=== PATIENT | female | born 1960 | race Caucasian/White ===

== ENCOUNTER 2016-05-25 11:30 | Emergency (ER) | payer OTHER ==
[~2016-05-25] VITALS: Ht 162.6 cm; Wt 89.1 kg
[~2016-05-25 11:30] MED LIST: ADULT LOW DOSE81 M1 PO; ADVIL200 MG PO; AEROECLIPSE1 EACH MC; AMITRIPTYLINE H25 MG PO; AMLODIPINE BES2.5 MG PO; ASPIR 8181 M1 PO; ATORVASTATIN CA40 MG PO; BENTYL10 MG PO; CALCIUM + VITA1 EAC1 PO; CALCIUM + VITA1 EACH PO; CENTRUM SILVER1 EAC3 PO; CIPRO500 MG PO; CIPROFLOXACIN500 M1 PO; CLONAZEPAM0.5 MG PO; CLONAZEPAM1 MG PO; CLONAZEPAM2 MG PO; COMBIVENT200 INHALA IH; CYANOCOBALAM1000 MCG PO; CYMBALTA60 MG PO; EFFEXOR75 MG PO; FLAGYL500 MG PO; GABAPENTIN100 MG PO; GLUCOPHAGE1000 MG PO; HUMALOG100 UNIT/1 SC; HUMALOG100 UNIT/2 SC; HYDROCHLOROTH12.5 MG PO; HYDROCHLOROTHIA25 MG PO; KLONOPIN2 MG PO; LANTUS (UNITS)1 UNIT IV; LANTUS 10100 UNITS/ SC; LANTUS 3 M100 UNITS1 SC; LEVOTHROID88 MCG PO; LEVOTHYROXINE88 MCG PO; LIPITOR40 MG PO; LISINOPRIL-HCT1 EACH PO; LOTENSIN20 MG PO; LOW DOSE ASPIRI81 M1 PO; LYRICA75 MG PO; MAGNESIUM250 MG PO; METFORMIN HCL500 MG PO; MICARDIS20 MG PO; NASONEX17 GM BOTH NARES; NEURONTIN100 MG PO; NEURONTIN600 MG PO; NORVASC10 MG PO; NOVOLOG 10100 UNITS/ SC; NOVOLOG PE100 UNITS/ SC; PRAVACHOL80 MG PO; PROMETHAZINE HC25 M1 PO; PROTONIX40 MG PO; PROVENTIL HFA6.7 GM IH; PROVENTIL2.5 MG/3 M IH; QUETIAPINE FUM100 MG PO; SEROQUEL100 MG PO; SEROQUEL200 MG PO; SIMVASTATIN80 M1 PO; SYMBICORT60 INHALAT IH; SYNTHROID88 MCG PO; TESSALON PERLE100 MG PO; TOPAMAX100 MG PO; TOPAMAX200 MG PO; TOPAMAX50 MG PO; TOPIRAMATE25 MG PO; TOPIRAMATE50 MG PO; TOPROL XL100 MG PO; ULTRAM50 MG PO; VITAMIN B-6100 MG PO; WELLBUTRIN SR150 MG PO
[2016-05-25] MEDS ORDERED: PERCOCET 5/31 TABLET PO (13:16)
[2016-05-25 15:46] VITALS: BP 156/88
[2016-06-03] MEDS ORDERED: OXYCODONE-ACET1 EACH PO (16:19)
== END 2016-05-25 15:46 | disposition home or self-care (01) ==
LOC: EME → EDBD 11:30 → EME 11:30
PROC: 2W3QX1Z Immobilization of Right Lower Leg using Splint (ICD-10-PCS; principal; 2016-05-25)
DX: S82.301A Unspecified fracture of lower end of right tibia, initial encounter for closed fracture (principal); S82.61XA Displaced fracture of lateral malleolus of right fibula, initial encounter for closed fracture; W10.9XXA Fall (on) (from) unspecified stairs and steps, initial encounter; E11.9 Type 2 diabetes mellitus without complications; I10 Essential (primary) hypertension; Z88.2 Allergy status to sulfonamides; Z88.0 Allergy status to penicillin
CPT/HCPCS: 73590; 73610; 99281; 99284; G8978 GP CJ; G8979 GP CI; G8987 GO CJ; G8988 GO CH

== ENCOUNTER 2016-06-07 10:09 | Inpatient (IN) | payer OTHER ==
[~2016-06-07] VITALS: Ht 162.6 cm; Wt 89.0 kg
[~2016-06-07 10:09] MED LIST changes: +OXYCODONE-ACET1 EACH PO; +PERCOCET 5/31 TABLET PO
[2016-06-07 10:37] VITALS: BP 134/60
[2016-06-07 11:05] LABS: POINT-OF-CARE METER ID UU14174212
[2016-06-07 17:25] LABS: POINT-OF-CARE METER ID UU13113675
[2016-06-07 18:05] LABS: POINT-OF-CARE METER ID UU13113714
[2016-06-07 18:07] LABS: POINT-OF-CARE METER ID UU13113675
[2016-06-07 20:35] VITALS: BP 130/65
[2016-06-07 21:50] VITALS: BP 130/65
[2016-06-07 22:30] LABS: POINT-OF-CARE METER ID UU14188577
[2016-06-08] VITALS (7 sets, daily range): BP systolic 109–188; BP diastolic 55–83
[2016-06-08 07:28] LABS: HEMATOCRIT 26.1 % (36.0-46.0); MCV 87.9 FL (83-99)
[2016-06-08] MEDS ORDERED: ENDOCET 5-3251 EACH PO ×2 (08:07→08:23)
[2016-06-08] MEDS ORDERED: LOVENOX40 MG/0.4 SC ×2 (08:07→08:23)
[2016-06-08 11:34] LABS: POINT-OF-CARE METER ID UU14188577
[2016-06-08 16:52] LABS: POINT-OF-CARE METER ID UU14188577
[2016-06-08 21:48] LABS: POINT-OF-CARE METER ID UU14188577
[2016-06-09 03:41] VITALS: BP 138/63
[2016-06-09 06:21] LABS: POINT-OF-CARE METER ID UU14188577
[2016-06-09 08:25] VITALS: BP 145/67
[2016-06-09 11:46] LABS: POINT-OF-CARE METER ID UU14149397
[2016-06-09 12:21] VITALS: BP 164/70
[2016-06-09 16:23] LABS: POINT-OF-CARE METER ID UU14149397
[2016-06-09 16:41] VITALS: BP 130/41
[2016-06-09 21:23] LABS: POINT-OF-CARE METER ID UU14149397
[2016-06-10] VITALS (10 sets, daily range): BP systolic 122–174; BP diastolic 58–73
[2016-06-10 07:14] LABS: POINT-OF-CARE METER ID UU14188577
[2016-06-10 07:24] LABS: HEMATOCRIT 21.3 % (36.0-46.0); MCH 27.5 PG (29.0-34.0); MCHC 31.9 G/DL (30.0-36.0); MCV 86.2 FL (83-99); MEAN PLAT.VOLUME 10.3 uM^3 (9.5-12.4); PLATELET COUNT 231 K/uL (156-360); RBC DIS.WIDTH-CV 13.1 % (11.8-14.6); RBC DIS.WIDTH-SD 41.7 % (39-53); WHITE BLOOD COUNT 7.4 K/uL (4.1-10.2)
[2016-06-10 07:34] LABS: ANION GAP 6 MEQ/L (2-14); CHLORIDE 107 MEQ/L (99-109); GFR ESTIMATE (CALCULATED) 41 mL/min/; GLUCOSE 160 mg/dL (70-99); POTASSIUM 4.7 MEQ/L (3.7-5.4); SAMPLE HEMOLYSIS CHECK 0; SAMPLE ICTERIC CHECK 0; SAMPLE LIPEMIA CHECK 0; SODIUM 135 MEQ/L (136-147); UREA NITROGEN (BUN) 30 mg/dL (9-23)
[2016-06-10 07:35] LABS: RED BLOOD COUNT 2.47 M/uL (3.80-5.20)
[2016-06-10 11:06] LABS: POINT-OF-CARE METER ID UU14188577
[2016-06-10 16:11] LABS: POINT-OF-CARE METER ID UU14188577
[2016-06-11] VITALS (7 sets, daily range): BP systolic 136–187; BP diastolic 58–86
[2016-06-11 05:30] LABS: HEMATOCRIT 27.6 % (36.0-46.0); MCH 28.2 PG (29.0-34.0); MCHC 32.2 G/DL (30.0-36.0); MCV 87.3 FL (83-99); MEAN PLAT.VOLUME 10.8 uM^3 (9.5-12.4); PLATELET COUNT 256 K/uL (156-360); RBC DIS.WIDTH-CV 13.2 % (11.8-14.6); RBC DIS.WIDTH-SD 42.5 % (39-53); WHITE BLOOD COUNT 7.3 K/uL (4.1-10.2)
[2016-06-11 05:32] LABS: RED BLOOD COUNT 3.16 M/uL (3.80-5.20)
[2016-06-11 05:43] LABS: ANION GAP 9 MEQ/L (2-14); CHLORIDE 108 MEQ/L (99-109); GFR ESTIMATE (CALCULATED) 41 mL/min/; POTASSIUM 4.8 MEQ/L (3.7-5.4); SAMPLE HEMOLYSIS CHECK 0; SAMPLE ICTERIC CHECK 0; SAMPLE LIPEMIA CHECK 0; SODIUM 138 MEQ/L (136-147); UREA NITROGEN (BUN) 31 mg/dL (9-23)
[2016-06-11 05:44] LABS: GLUCOSE 255 mg/dL (70-99)
[2016-06-11 16:29] LABS: POINT-OF-CARE METER ID UU14149397
[2016-06-11 21:48] LABS: POINT-OF-CARE METER ID UU14188577
[2016-06-12] VITALS (8 sets, daily range): BP systolic 152–192; BP diastolic 65–99
[2016-06-12 12:06] LABS: POINT-OF-CARE METER ID UU14188577
[2016-06-12 17:01] LABS: POINT-OF-CARE METER ID UU14149397
[2016-06-13 07:33] VITALS: BP 192/86
[2016-06-13 11:47] LABS: POINT-OF-CARE METER ID UU14188577
[2016-06-13 12:02] VITALS: BP 190/78
[2016-06-13 14:19] VITALS: BP 170/92
[2016-06-13 16:16] VITALS: BP 188/90
[2016-06-13 17:03] LABS: POINT-OF-CARE METER ID UU14188577
[2016-06-13 21:25] VITALS: BP 185/85
[2016-06-13 22:57] VITALS: BP 108/54
[2016-06-14 05:25] VITALS: BP 135/64
[2016-06-14 07:17] VITALS: BP 136/61
[2016-06-14] MEDS ORDERED: AMLODIPINE BESYL5 MG PO (08:22)
[2016-06-14 09:25] LABS: HEMATOCRIT 35.4 % (36.0-46.0); MCH 27.3 PG (29.0-34.0); MCHC 30.8 G/DL (30.0-36.0); MCV 88.5 FL (83-99); MEAN PLAT.VOLUME 10.1 uM^3 (9.5-12.4); RBC DIS.WIDTH-CV 13.4 % (11.8-14.6); RBC DIS.WIDTH-SD 43.9 % (39-53); WHITE BLOOD COUNT 8.7 K/uL (4.1-10.2)
[2016-06-14 09:38] LABS: ANION GAP 8 MEQ/L (2-14); CHLORIDE 103 MEQ/L (99-109); GFR ESTIMATE (CALCULATED) 41 mL/min/; GLUCOSE 164 mg/dL (70-99); PLATELET COUNT 376 K/uL (156-360); SAMPLE HEMOLYSIS CHECK 0; SAMPLE ICTERIC CHECK 0; SAMPLE LIPEMIA CHECK 0; SODIUM 136 MEQ/L (136-147); UREA NITROGEN (BUN) 34 mg/dL (9-23)
[2016-06-14 11:44] LABS: POINT-OF-CARE METER ID UU14188577
[2016-06-14 15:06] VITALS: BP 170/77
== END 2016-06-14 18:04 | DRG 940 ==
LOC: SDC 10:09 → 2SOUTH 17:35 → 3EAST 17:35
PROVIDERS: Hospitalist; Internal Medicine Pulmonary Disease; Nurse Practitioner Family; Orthopaedic Surgery
PROC: 0QSG04Z Reposition Right Tibia with Internal Fixation Device, Open Approach (ICD-10-PCS; principal; 2016-06-07)
PROC: 30233N1 Transfusion of Nonautologous Red Blood Cells into Peripheral Vein, Percutaneous Approach (ICD-10-PCS; 2016-06-10)
DX: G89.18 Other acute postprocedural pain (principal); S82.871A Displaced pilon fracture of right tibia, initial encounter for closed fracture; D62 Acute posthemorrhagic anemia; Z75.1 Person awaiting admission to adequate facility elsewhere; W00.0XXA Fall on same level due to ice and snow, initial encounter; J44.9 Chronic obstructive pulmonary disease, unspecified; R09.02 Hypoxemia; E11.40 Type 2 diabetes mellitus with diabetic neuropathy, unspecified; E78.5 Hyperlipidemia, unspecified; I10 Essential (primary) hypertension; F41.9 Anxiety disorder, unspecified; F32.9 Major depressive disorder, single episode, unspecified; F17.210 Nicotine dependence, cigarettes, uncomplicated; E66.9 Obesity, unspecified; Z60.2 Problems related to living alone; Z91.19 Patient's noncompliance with other medical treatment and regimen; Z86.14 Personal history of Methicillin resistant Staphylococcus aureus infection; Z79.82 Long term (current) use of aspirin; Z88.0 Allergy status to penicillin; Z88.2 Allergy status to sulfonamides; Z88.5 Allergy status to narcotic agent; Y92.018 Other place in single-family (private) house as the place of occurrence of the external cause; Z68.33 Body mass index [BMI] 33.0-33.9, adult
CPT/HCPCS: 71275; 73600; 73610; 76000; 80048; 82948; 85014; 85018; 85027; 86850; 86900; 86901; 86920; 93970; 94640; 94640 76; 94799; 97530 GP; 99202; C1713; G0378; G8987 CK; G8988 GO CJ; J0360; J0690; J1170; J1650; J1815; J2250; J2270; J2405; J2710; J2795; J3010; J3370; J7030; P9016

== ENCOUNTER 2016-06-17 09:33 | Emergency (ER) | payer OTHER ==
[~2016-06-17] VITALS: Ht 162.6 cm; Wt 86.6 kg
[~2016-06-17 09:33] MED LIST changes: +AMLODIPINE BESYL5 MG PO; +ENDOCET 5-3251 EACH PO; +LOVENOX40 MG/0.4 SC
[2016-06-17 11:26] LABS: BASOPHIL COUNT 0.1 K/uL (0-0.1); EOSINOPHIL (%) 0.9 % (0-5); EOSINOPHIL COUNT 0.1 K/uL (0-0.3); IMMATURE GRANULOCYTE (%) 0.9 % (0.0-0.7); IMMATURE GRANULOCYTE COUNT 0.1 K/uL; INSTRUMENT ABS NEUTROPHIL CT 7.9 K/uL; LYMPHOCYTE COUNT 1.2 K/uL (1.0-2.8); MCH 27.7 PG (29.0-34.0); MCHC 32.6 G/DL (30.0-36.0); MEAN PLAT.VOLUME 10.7 uM^3 (9.5-12.4); MONOCYTE COUNT 0.7 K/uL (0-0.8); NEUTROPHIL (%) 78.8 % (45-76); NEUTROPHIL COUNT 7.9 K/uL (1.8-6.4); PLATELET COUNT 363 K/uL (156-360); RBC DIS.WIDTH-CV 12.9 % (11.8-14.6); RBC DIS.WIDTH-SD 40.1 % (39-53); RED BLOOD COUNT 4.47 M/uL (3.80-5.20)
[2016-06-17 11:38] LABS: CHLORIDE 102 mEq/L (99-109); SODIUM 133 mEq/L (136-147)
[2016-06-17 11:40] LABS: GLUCOSE 381 mg/dL (70-99)
[2016-06-17 11:41] LABS: ANION GAP 11 MEQ/L (2-14)
[2016-06-17 11:44] LABS: GFR ESTIMATE (CALCULATED) 31 mL/min/; UREA NITROGEN (BUN) 43 mg/dL (9-23)
[2016-06-17] MEDS ORDERED: COLACE100 MG PO (11:55)
[2016-06-17] MEDS ORDERED: MIRALAX17 GM PO (11:55)
[2016-06-17 14:09] VITALS: BP 133/58
== END 2016-06-17 13:00 ==
LOC: EME 09:33
PROVIDERS: Physician Assistant
DX: K59.00 Constipation, unspecified (principal); K21.9 Gastro-esophageal reflux disease without esophagitis; E11.9 Type 2 diabetes mellitus without complications; I10 Essential (primary) hypertension; Z88.2 Allergy status to sulfonamides; Z88.0 Allergy status to penicillin; F17.200 Nicotine dependence, unspecified, uncomplicated
CPT/HCPCS: 80048; 85025; 99281; 99285

== ENCOUNTER 2016-08-04 13:14 | Inpatient (IN) | payer OTHER ==
[~2016-08-04] VITALS: Ht 162.6 cm; Wt 82.2 kg
[~2016-08-04 13:14] MED LIST changes: +COLACE100 MG PO; +MIRALAX17 GM PO
[2016-08-04] MEDS ORDERED: DOCUSATE SODIU100 MG PO (14:28)
[2016-08-04 14:30] LABS: HEMATOCRIT 29.9 % (36.0-46.0); MCH 27.8 PG (29.0-34.0); MCHC 33.4 G/DL (30.0-36.0); MCV 83.1 FL (83-99); PLATELET COUNT 316 K/uL (156-360); RBC DIS.WIDTH-CV 12.6 % (11.8-14.6); RBC DIS.WIDTH-SD 38.5 % (39-53); WHITE BLOOD COUNT 9.2 K/uL (4.1-10.2)
[2016-08-04] MEDS ORDERED: MIRALAX255 GM PO (14:33)
[2016-08-04] MEDS ORDERED: LO-DOSE ASPIRIN81 M2 PO (14:35)
[2016-08-04] MEDS ORDERED: NICOTINE PATCH1 EAC2 TD (14:36)
[2016-08-04] MEDS ORDERED: ONE DAILY MULT1 EACH PO (14:36)
[2016-08-04] MEDS ORDERED: VITAMIN C1000 MG PO (14:36)
[2016-08-04 14:39] LABS: CHLORIDE 102 mEq/L (99-109); POTASSIUM 4.1 mEq/L (3.7-5.4); SODIUM 136 mEq/L (136-147)
[2016-08-04 14:41] LABS: GLUCOSE 108 mg/dL (70-99)
[2016-08-04 14:42] LABS: ANION GAP 10 MEQ/L (2-14); PROTHROMBIN TIME 10.6 (9.2-11.2); PTT 41.5 (25-32)
[2016-08-04 14:45] LABS: GFR ESTIMATE (CALCULATED) 38 mL/min/
[2016-08-04 14:46] LABS: UREA NITROGEN (BUN) 29 mg/dL (9-23)
[2016-08-04] MEDS ORDERED: LOVENOX40 MG/0.4 SC (15:46)
[2016-08-04 23:33] LABS: EOSINOPHIL (%) 2.1 % (0-5); EOSINOPHIL COUNT 0.2 K/uL (0-0.3); HEMATOCRIT 30.8 % (36.0-46.0); IMMATURE GRANULOCYTE (%) 0.5 % (0.0-0.7); INSTRUMENT ABS NEUTROPHIL CT 5.3 K/uL; LYMPHOCYTE COUNT 1.5 K/uL (1.0-2.8); MCH 27.5 PG (29.0-34.0); MCHC 33.1 G/DL (30.0-36.0); MEAN PLAT.VOLUME 9.4 uM^3 (9.5-12.4); MONOCYTE (%) 8.9 % (3-12); MONOCYTE COUNT 0.7 K/uL (0-0.8); NEUTROPHIL (%) 69.3 % (45-76); NEUTROPHIL COUNT 5.3 K/uL (1.8-6.4); PLATELET COUNT 312 K/uL (156-360); RBC DIS.WIDTH-CV 12.6 % (11.8-14.6); RBC DIS.WIDTH-SD 38.4 % (39-53); RED BLOOD COUNT 3.71 M/uL (3.80-5.20); WHITE BLOOD COUNT 7.7 K/uL (4.1-10.2)
[2016-08-04 23:42] LABS: CHLORIDE 111 mEq/L (99-109); POTASSIUM 4.3 mEq/L (3.7-5.4); SODIUM 142 mEq/L (136-147)
[2016-08-04 23:45] LABS: GLUCOSE 72 mg/dL (70-99)
[2016-08-04 23:46] LABS: ANION GAP 9 MEQ/L (2-14); TOTAL BILIRUBIN 0.2 mg/dL (0.0-1.0)
[2016-08-04 23:48] LABS: ALKALINE PHOSPHATASE 87 IU/L (3-129); GFR ESTIMATE (CALCULATED) 49 mL/min/
[2016-08-04 23:49] LABS: UREA NITROGEN (BUN) 22 mg/dL (9-23)
[2016-08-05] VITALS (8 sets, daily range): BP systolic 113–156; BP diastolic 53–87
[2016-08-05 01:26] LABS: ERTH.SED.RATE 49 MM/HR (0-30)
[2016-08-05 04:18] LABS: C-REACTIVE PROTEIN 50.8 MG/L (0-10)
[2016-08-05 07:46] LABS: POINT-OF-CARE METER ID UU14149397
[2016-08-05 09:45] LABS: METH RESISTANT S AUREUS PCR NEGATIVE (NEGATIVE)
[2016-08-05 09:50] LABS: PROBE CHECK PASS; SPECIMEN PROCESSING CONTROL PASS
[2016-08-05 12:00] LABS: POINT-OF-CARE METER ID UU14149397
[2016-08-05 22:11] LABS: POINT-OF-CARE METER ID UU14188577
[2016-08-06 03:46] VITALS: BP 104/57
[2016-08-06 07:59] LABS: HEMATOCRIT 29.2 % (36.0-46.0); MCH 27.7 PG (29.0-34.0); MCHC 32.2 G/DL (30.0-36.0); MCV 86.1 FL (83-99); MEAN PLAT.VOLUME 10.5 uM^3 (9.5-12.4); PLATELET COUNT 305 K/uL (156-360); RBC DIS.WIDTH-CV 12.7 % (11.8-14.6); RED BLOOD COUNT 3.39 M/uL (3.80-5.20)
[2016-08-06 08:05] VITALS: BP 125/63
[2016-08-06 08:23] LABS: ANION GAP 8 MEQ/L (2-14); CHLORIDE 108 MEQ/L (99-109); GFR ESTIMATE (CALCULATED) 38 mL/min/; SAMPLE HEMOLYSIS CHECK 0; SAMPLE ICTERIC CHECK 0; SAMPLE LIPEMIA CHECK 0; SODIUM 140 MEQ/L (136-147); UREA NITROGEN (BUN) 24 mg/dL (9-23)
[2016-08-06 08:30] LABS: GLUCOSE 137 mg/dL (70-99)
[2016-08-06 11:10] VITALS: BP 133/67
[2016-08-06 11:27] LABS: POINT-OF-CARE METER ID UU14188577
[2016-08-06 15:02] LABS: POINT-OF-CARE METER ID UU14188577
[2016-08-06 16:07] VITALS: BP 158/74
[2016-08-06 16:23] LABS: POINT-OF-CARE METER ID UU14188577
[2016-08-06 21:50] LABS: POINT-OF-CARE METER ID UU14188577
[2016-08-07] VITALS (7 sets, daily range): BP systolic 110–170; BP diastolic 57–85
[2016-08-07 06:14] LABS: POINT-OF-CARE METER ID UU14188577
[2016-08-07 08:11] LABS: EOSINOPHIL (%) 3.7 % (0-5); EOSINOPHIL COUNT 0.2 K/uL (0-0.3); HEMATOCRIT 26.9 % (36.0-46.0); IMMATURE GRANULOCYTE (%) 0.3 % (0.0-0.7); INSTRUMENT ABS NEUTROPHIL CT 3.9 K/uL; LYMPHOCYTE COUNT 1.2 K/uL (1.0-2.8); MCH 28.8 PG (29.0-34.0); MCHC 34.2 G/DL (30.0-36.0); MCV 84.1 FL (83-99); MEAN PLAT.VOLUME 10.2 uM^3 (9.5-12.4); MONOCYTE (%) 9.6 % (3-12); MONOCYTE COUNT 0.6 K/uL (0-0.8); NEUTROPHIL (%) 65.8 % (45-76); NEUTROPHIL COUNT 3.9 K/uL (1.8-6.4); PLATELET COUNT 274 K/uL (156-360); RBC DIS.WIDTH-CV 12.7 % (11.8-14.6); RBC DIS.WIDTH-SD 38.8 % (39-53); WHITE BLOOD COUNT 5.9 K/uL (4.1-10.2)
[2016-08-07 09:24] LABS: ANION GAP 8 MEQ/L (2-14); CHLORIDE 108 MEQ/L (99-109); GFR ESTIMATE (CALCULATED) 45 mL/min/; SAMPLE HEMOLYSIS CHECK 0; SAMPLE ICTERIC CHECK 0; SAMPLE LIPEMIA CHECK 0; SODIUM 140 MEQ/L (136-147); UREA NITROGEN (BUN) 27 mg/dL (9-23)
[2016-08-07 09:28] LABS: GLUCOSE 94 mg/dL (70-99)
[2016-08-07 11:28] LABS: POINT-OF-CARE METER ID UU14188577
[2016-08-07 17:04] LABS: POINT-OF-CARE METER ID UU14149397
[2016-08-08 05:19] VITALS: BP 139/66
[2016-08-08 06:30] LABS: POINT-OF-CARE METER ID UU14149397
[2016-08-08 07:40] VITALS: BP 124/56
[2016-08-08 08:05] LABS: HEMATOCRIT 28.2 % (36.0-46.0); MCH 28.4 PG (29.0-34.0); MCV 83.4 FL (83-99); MEAN PLAT.VOLUME 10.5 uM^3 (9.5-12.4); PLATELET COUNT 284 K/uL (156-360); RBC DIS.WIDTH-CV 12.5 % (11.8-14.6); RBC DIS.WIDTH-SD 38.2 % (39-53); RED BLOOD COUNT 3.38 M/uL (3.80-5.20)
[2016-08-08 08:35] LABS: ANION GAP 10 MEQ/L (2-14); CHLORIDE 107 MEQ/L (99-109); POTASSIUM 4.3 MEQ/L (3.7-5.4); SAMPLE HEMOLYSIS CHECK 0; SAMPLE ICTERIC CHECK 0; SAMPLE LIPEMIA CHECK 0; SODIUM 139 MEQ/L (136-147)
[2016-08-08 08:42] LABS: GFR ESTIMATE (CALCULATED) 54 mL/min/; GLUCOSE 177 mg/dL (70-99); UREA NITROGEN (BUN) 28 mg/dL (9-23)
[2016-08-08 11:25] VITALS: BP 134/69
[2016-08-08 15:30] VITALS: BP 147/69
[2016-08-08 19:56] VITALS: BP 133/62
[2016-08-08 21:53] LABS: POINT-OF-CARE METER ID UU14149397
[2016-08-09 00:11] VITALS: BP 135/66
[2016-08-09 04:31] VITALS: BP 144/71
[2016-08-09 07:39] LABS: POINT-OF-CARE METER ID UU14149397
[2016-08-09 08:00] VITALS: BP 138/65
[2016-08-09 11:25] VITALS: BP 149/76
[2016-08-09 11:56] LABS: POINT-OF-CARE METER ID UU14149397
[2016-08-09 15:44] VITALS: BP 155/71
[2016-08-09 16:43] LABS: POINT-OF-CARE METER ID UU14149397
[2016-08-09 19:34] VITALS: BP 185/81
[2016-08-10] VITALS: BP 162/72
[2016-08-10 07:00] LABS: POINT-OF-CARE METER ID UU14149397
[2016-08-10 07:56] VITALS: BP 98/55
[2016-08-10] MEDS ORDERED: ENDOCET 5-3251 EACH PO (09:33)
[2016-08-10 11:33] LABS: POINT-OF-CARE METER ID UU14149397
[2016-08-10 14:36] VITALS: BP 126/62
[2016-08-10 16:38] LABS: POINT-OF-CARE METER ID UU14149397
[2016-08-10 16:47] VITALS: BP 123/59
[2016-08-10 18:20] LABS: C DIFF TOXIN NEGATIVE (NEGATIVE)
[2016-08-10 18:27] LABS: PROBE CHECK PASS; SPECIMEN PROCESSING CONTROL PASS
[2016-08-10 23:56] VITALS: BP 139/77
[2016-08-11 07:55] VITALS: BP 120/61
[2016-08-11] MEDS ORDERED: CIPROFLOXACIN500 M1 PO (09:17)
[2016-08-11 10:26] LABS: HEMATOCRIT 32.2 % (36.0-46.0); MCH 28.3 PG (29.0-34.0); MCHC 33.5 G/DL (30.0-36.0); MCV 84.3 FL (83-99); MEAN PLAT.VOLUME 10.2 uM^3 (9.5-12.4); PLATELET COUNT 249 K/uL (156-360); RBC DIS.WIDTH-CV 12.9 % (11.8-14.6); RBC DIS.WIDTH-SD 39.3 % (39-53); RED BLOOD COUNT 3.82 M/uL (3.80-5.20)
[2016-08-11 10:54] LABS: ANION GAP 10 MEQ/L (2-14); CHLORIDE 111 MEQ/L (99-109); GFR ESTIMATE (CALCULATED) 38 mL/min/; GLUCOSE 200 mg/dL (70-99); POTASSIUM 4.5 MEQ/L (3.7-5.4); SAMPLE HEMOLYSIS CHECK 0; SAMPLE ICTERIC CHECK 0; SAMPLE LIPEMIA CHECK 0; SODIUM 141 MEQ/L (136-147); UREA NITROGEN (BUN) 35 mg/dL (9-23)
[2016-08-11] MEDS ORDERED: ANCEF,KEFZ1 GM/50 ML IV (11:14)
== END 2016-08-11 11:42 | DRG 560 ==
LOC: EME 13:14 → 3EAST 23:02 → EDOF 23:02 → 3EAST 08-05 00:15
PROVIDERS: Emergency Medicine; Internal Medicine; Orthopaedic Surgery; Physician Assistant
DX: T84.622A Infection and inflammatory reaction due to internal fixation device of right tibia, initial encounter (principal); T81.31XA Disruption of external operation (surgical) wound, not elsewhere classified, initial encounter; Y83.1 Surgical operation with implant of artificial internal device as the cause of abnormal reaction of the patient, or of later complication, without mention of misadventure at the time of the procedure; E11.69 Type 2 diabetes mellitus with other specified complication; M86.171 Other acute osteomyelitis, right ankle and foot; B95.61 Methicillin susceptible Staphylococcus aureus infection as the cause of diseases classified elsewhere; B96.20 Unspecified Escherichia coli [E. coli] as the cause of diseases classified elsewhere; E11.65 Type 2 diabetes mellitus with hyperglycemia; K52.1 Toxic gastroenteritis and colitis; T47.4X5A Adverse effect of other laxatives, initial encounter; E11.22 Type 2 diabetes mellitus with diabetic chronic kidney disease; I12.9 Hypertensive chronic kidney disease with stage 1 through stage 4 chronic kidney disease, or unspecified chronic kidney disease; N18.3 Chronic kidney disease, stage 3 (moderate); D64.9 Anemia, unspecified; E11.42 Type 2 diabetes mellitus with diabetic polyneuropathy; E78.00 Pure hypercholesterolemia, unspecified; E78.5 Hyperlipidemia, unspecified; E03.9 Hypothyroidism, unspecified; J44.9 Chronic obstructive pulmonary disease, unspecified; J45.909 Unspecified asthma, uncomplicated; K21.9 Gastro-esophageal reflux disease without esophagitis; K59.09 Other constipation; F33.40 Major depressive disorder, recurrent, in remission, unspecified; F41.9 Anxiety disorder, unspecified; E66.9 Obesity, unspecified; F17.200 Nicotine dependence, unspecified, uncomplicated; S82.871S Displaced pilon fracture of right tibia, sequela; Z68.33 Body mass index [BMI] 33.0-33.9, adult; Z88.0 Allergy status to penicillin; Z79.4 Long term (current) use of insulin; Z86.14 Personal history of Methicillin resistant Staphylococcus aureus infection
CPT/HCPCS: 76937; 80048; 80053; 82948; 83605; 85025; 85027; 85610; 85651; 85730; 86140; 87040; 87070; 87075; 87077; 87147; 87186; 87205; 87493; 87641; 97530 GO; 99281; 99285; J0690; J0692; J1815; J3370; J7050; S0030

== ENCOUNTER 2016-08-23 07:12 | Inpatient (IN) | payer OTHER ==
[~2016-08-23] VITALS: Ht 162.6 cm; Wt 80.5 kg
[~2016-08-23 07:12] MED LIST changes: +ANCEF,KEFZ1 GM/50 ML IV; +DOCUSATE SODIU100 MG PO; +FLORASTOR250 MG PO; +LO-DOSE ASPIRIN81 M2 PO; +MIRALAX255 GM PO; +NICODERM CQ1 EAC2 TD; +NICOTINE PATCH1 EAC2 TD; +ONE DAILY MULT1 EACH PO; +SENOKOT,SENN1 TABLET PO; +VITAMIN C1000 MG PO
[2016-08-23 08:06] VITALS: BP 135/67
[2016-08-23 08:24] LABS: POINT-OF-CARE METER ID UU14174212
[2016-08-23 09:11] LABS: METH RESISTANT S AUREUS PCR NEGATIVE (NEGATIVE)
[2016-08-23 09:18] LABS: PROBE CHECK PASS; SPECIMEN PROCESSING CONTROL PASS
[2016-08-23 11:53] LABS: POINT-OF-CARE METER ID UU13113675
[2016-08-23 16:35] VITALS: BP 138/60
[2016-08-23 20:15] VITALS: BP 132/66
[2016-08-23 22:41] LABS: POINT-OF-CARE METER ID UU14162508
[2016-08-24 00:01] VITALS: BP 169/74
[2016-08-24 03:00] VITALS: BP 138/63
[2016-08-24 09:20] VITALS: BP 138/65
[2016-08-24] MEDS ORDERED: HYDROCODON-ACE1 EAC7 PO (12:19)
[2016-08-24 13:23] LABS: Estimated Average Glucose 148 mg/dL (70-123); HEMOGLOBIN A1c (GLYCOHEMOGLOB) 6.8 % HGB (Below 5.7)
[2016-08-24 14:21] VITALS: BP 171/74
== END 2016-08-24 14:42 | DRG 496 ==
LOC: SDC 07:12 → 2EAST 11:49 → 2SOUTH 11:49 → SDC 14:33 → 2EAST 16:24
PROVIDERS: Internal Medicine; Orthopaedic Surgery
DX: T84.622A Infection and inflammatory reaction due to internal fixation device of right tibia, initial encounter (principal); T81.31XA Disruption of external operation (surgical) wound, not elsewhere classified, initial encounter; Y79.3 Surgical instruments, materials and orthopedic devices (including sutures) associated with adverse incidents; E11.69 Type 2 diabetes mellitus with other specified complication; M86.9 Osteomyelitis, unspecified; E11.40 Type 2 diabetes mellitus with diabetic neuropathy, unspecified; S82.874 Nondisplaced pilon fracture of right tibia; E78.00 Pure hypercholesterolemia, unspecified; I10 Essential (primary) hypertension; F32.9 Major depressive disorder, single episode, unspecified; F41.9 Anxiety disorder, unspecified; E78.5 Hyperlipidemia, unspecified; F17.210 Nicotine dependence, cigarettes, uncomplicated; Z86.19 Personal history of other infectious and parasitic diseases; Z79.4 Long term (current) use of insulin; Z88.0 Allergy status to penicillin; Z88.1 Allergy status to other antibiotic agents; Z88.2 Allergy status to sulfonamides; Z88.5 Allergy status to narcotic agent
CPT/HCPCS: 73600; 73610; 76000; 82948; 83036; 87641; J0690; J1170; J1650; J1815; J2250; J3010; J7030; J7050

== ENCOUNTER 2016-10-06 12:45 | Emergency (ER) | payer OTHER ==
[~2016-10-06] VITALS: Ht 162.6 cm; Wt 78.8 kg
[~2016-10-06 12:45] MED LIST changes: +HYDROCODON-ACE1 EAC7 PO
[2016-10-06 13:12] LABS: POINT-OF-CARE METER ID UU13113702
[2016-10-06 16:50] VITALS: BP 152/74
== END 2016-10-06 17:06 ==
LOC: EME 12:45
DX: F41.0 Panic disorder [episodic paroxysmal anxiety] (principal); F32.9 Major depressive disorder, single episode, unspecified; E11.9 Type 2 diabetes mellitus without complications; K21.9 Gastro-esophageal reflux disease without esophagitis; J44.9 Chronic obstructive pulmonary disease, unspecified; Z79.4 Long term (current) use of insulin; Z88.2 Allergy status to sulfonamides; Z88.0 Allergy status to penicillin; F17.200 Nicotine dependence, unspecified, uncomplicated
CPT/HCPCS: 82948; 93005; 99281; 99284